=== PATIENT | male | born 1965 | race Caucasian/White ===

== ENCOUNTER → 2022-09-17 16:54 | Outpatient (CLI) | payer BC, SELFPAY ==
--- NOTE | 2022-09-17 17:01 | XR_ITS ---
PROCEDURE INFORMATION: Exam: XR Left Elbow Exam date and time: 09/17/2022 5:02 PM Age: 57 years old Clinical indication: Pain; Elbow; Left; Additional info: Left elbow pain TECHNIQUE: Imaging protocol: Radiologic exam of the left elbow. Views: 3 or more views. COMPARISON: No relevant prior studies available. FINDINGS: Bones/joints: Triceps tendinous enthesophyte. Soft tissues: Normal. Other findings: No effusion. IMPRESSION: No acute radiographic findings identified.
== END ==
PROVIDERS: PCP Nurse Practitioner Family; Visit Provider Orthopaedic Surgery
DX: M25.522 Pain in left elbow (principal)
CPT/HCPCS: 73080

== ENCOUNTER → 2022-09-18 15:28 | Outpatient (CLI) | payer BC, SELFPAY ==
--- NOTE | 2022-09-18 15:37 | ECG_ITS ---
APPROVED REPORT Exam: Resting ECG HR:50 bpm ECG Measurements Heart Rate 50 AXES IN 199 P 61 QRSd 98 QRS 33 QT 452 T 38 QTc 427 Conclusion SINUS BRADYCARDIA Isolated Q in III BORDERLINE ECG UNCONFIRMED REPORT Electronically signed by : Rashad Carter MD 09/19/2022 10:39:35
--- NOTE | 2022-09-18 15:54 | XR_ITS ---
FINAL REPORT CLINICAL HISTORY: Pre op carpal tunnel surgery sob pt is having bone spurs and carpal tunnel COMPARISON: None FINDINGS: There is no evidence of effusion or other pleural disease. The mediastinum has a normal appearance. The cardiac silhouette is unremarkable. IMPRESSION: Unremarkable chest exam. Reviewed, Interpreted and Dictated by Russell Estevez MD Transcribed by Tanisha Dobbs Authenticated and [facility]
[2022-09-18 16:12] LABS: Basophils # 0.1 K/mm3 (0-0.2); Eosinophils # 0.1 K/mm3 (0.0-0.4); Eosinophils % 1.6 % (0.1-12.0); Hematocrit 42.8 % (42.0-52.0); Hemoglobin 14.6 g/dL (14.1-18.0); Lymphocytes # 1.7 K/mm3 (0.7-4.5); Lymphocytes % 25.4 % (10-50); Mean Corpuscular Hemoglobin 30.2 pg (27.0-31.2); Mean Corpuscular Volume 88.9 fl (80-94); Mean Platelet Volume 8.8 fl (7.4-10.4); Monocytes # 0.3 K/mm3 (0.1-1.0); Neutrophils # 4.4 K/mm3 (1.8-7.8); Platelet Count 274 K/mm3 (142-424); Red Blood Count 4.82 M/mm3 (4.60-6.20); Red Cell Distribution Width 14.2 % (11.5-17.5); White Blood Count 6.6 K/mm3 (4.8-10.8)
[2022-09-18 16:43] LABS: Chloride 99 mmol/L (98-107); Potassium 3.4 mmoL/L (3.5-5.1); Sodium 138 mmol/L (136-145)
[2022-09-18 16:46] LABS: Alanine Aminotransferase 61 U/L (12-78); Albumin Level 4.4 g/dl (3.5-5.0); Albumin/Globulin Ratio 1.6 (1.1-1.8); Alkaline Phosphatase 101 U/L (38-126); Anion Gap 13.4 mEq/L (5-15); Aspartate Amino Transferase 48 U/L (17-59); Bilirubin,Total 0.6 mg/dl (0.2-1.3); Blood Urea Nitrogen 20 mg/dl (9-20); Carbon Dioxide 29 mmol/L (22.0-30.0); Estimated Glomerular Filt Rate 77 ml/min (>60); GFR (African American) 93 ML/MIN (>60); Globulin 2.7 g/dL (1.3-3.2); Total Protein,Serum 7.1 g/dl (6.3-8.2)
[2022-09-18 16:47] LABS: Calcium 9.2 mg/dl (8.4-10.2); Glucose 109 mg/dl (74-100)
== END ==
PROVIDERS: PCP Nurse Practitioner Family; Visit Provider Orthopaedic Surgery
DX: Z01.818 Encounter for other preprocedural examination (principal); G56.22 Lesion of ulnar nerve, left upper limb
CPT/HCPCS: 71046; 80053; 85025; 93005

== ENCOUNTER 2022-09-23 11:15 | Day surgery (SDC) | payer BC, SELFPAY ==
[2022-09-22 15:06] VITALS: BMI 29.8
[2022-09-23] VITALS (10 sets, daily range): BP systolic 132–160; BP diastolic 72–92; PULSE 61–84; RESP 14–18; TEMP 36.3–36.6; O2SAT 95–98
--- NOTE | 2022-09-23 12:32 | P.PN_ITS ---
[facility] Disclaimer: The information contained in this section may have been updated after the patient was seen, as this information can be updated by other users. Medical History AC (acromioclavicular) joint bone spurs Carpal tunnel syndrome Hyperlipidemia Hypertension Surgical History History of hernia repair Family History Other Family history of hypertension Family history of myocardial infarction Social History Smoking Status: Former smoker alcohol intake: current substance use type: denies use current occupational status: employed Travel in the last 8 weeks: None [facility] Anesthesia Checklist Patient Identification Patient Identification: Arm Band and Family Structural Data Admitted From: Home Planned Operative Procedure/s: left CTR and ext spur left elbow Consent for Planned Operative Procedure(s) Verified: Yes Verified Documents: History and Physical NPO Status Verified Time NPO: 00:00 Additional verifications Patient : No Anesthesia Reactions: No Hx Blood Transfusions: No Blood Transfusion Reaction: No Cephalosporin Allergy: No Airway Assessment C-Spine Mobility Assessed: Yes TMJ Mobility Assessed: Yes Dentition: Good Dentition Neurological Assessment Level of Consciousness: Awake, Alert, Appropriate and Follows Commands Hx Seizures: No Numbness or tingling in extremities: No Anesthesia Plan Anesthesia Risk discussed: Yes ASA Class: II Anesthesia Type: General
--- NOTE | 2022-09-23 14:07 | XR_ITS ---
FINAL REPORT CLINICAL HISTORY: LEFT BONE SPUR IN OR 6sec ft FINDINGS: FLUOROSCOPY 2 spot films of the left elbow in the operating room was obtained using 0.1 minutes of fluoroscopy time. IMPRESSION: Fluoroscopy as above. Reviewed, Interpreted and Dictated by Mick Guzman III, MD Transcribed by Guillermina Todd Authenticated and [facility]
--- NOTE | 2022-09-23 14:32 | EXP.ANES.I ---
[facility] Anesthesia Record Part I Anesthesia Record I Intake, IV Amount: 450 Estimated blood loss (mL): 3 Urine output (mL): 0 Blood Products used (#): none Blood Pressure: 138/91 SaO2: 96 Pulse Rate: 84 Respiratory Rate: 14 Temperature: 97.5 F Patient is:: Drowsy and Stable Stable to PACU at:: 14:18
--- NOTE | 2022-09-23 14:36 | P.OP_ITS ---
Date of procedure: 09/23/22 Pre-op Diagnosis:: Left carpal tunnel syndrome Left elbow osteophyte olecranon Post-op Diagnosis:: Same Procedure performed:: 1. Left endoscopic carpal tunnel release 2. Removal osteophyte left elbow olecranon Surgeon:: Chacorta Pelaez DO CAR GROOMER:: Other Anesthesia: LMA Estimated blood loss (mL): 0 Operative findings:: See dictation Operative note:: Patient is identified preoperatively. Left elbow and wrist marked yes my initials. Transferred operative suite. Placed upon the operating bed. General anesthesia ministered airway secured. Left upper extremity prepped and draped in normal sterile fashion. Once prepped and draped final operative timeout performed to identify proper patient procedure and extremity. Everyone involved the case agreed. There is no counter indications to beginning. Did receive preoperative antibiotics. Marking pen was used to elyssa plan incision over the volar wrist and over the osteophyte at the elbow. Esmarch was used to exsanguinate the extremity pneumatic tourniquet inflated 250 mmHg. Skin knife was used to incise the skin at the wrist careful dissection taken down the scissors to identify the most proximal aspect of the transverse carpal ligament retractors were placed. The dilator was placed into the carpal tunnel followed by the left-sided specific sled. Then camera was introduced in the carpal tunnel. Transverse carpal ligament clearly seen superiorly within the camera. Probe was used to probe the distal end of the transverse carpal ligament. Rasp was used to remove soft tissue. Then the hook blade from the [employer] endoscopic carpal tunnel set was utilized to cut the transverse carpal ligament for a full carpal tunnel release. Pictures were taken. Irrigation of the wound performed. Skin closed with nylon stitches. Attention was then brought to the elbow. X-ray was brought into identify the osteophyte at the olecranon left elbow. Skin knife is used to incise over this area dissection was taken down bluntly with scissors. The osteophyte was identified. With a combination of osteotome rongeur and a rasp the osteophyte was removed the bone was smoothed. Irrigation of the wound performed. Skin cl osed with nylon stitches. Sterile dressing placed from elbow to wrist. Patient waken anesthesia taken recovery in stable condition. Condition: stable Disposition: PACU Complications:: None apparent
--- NOTE | 2022-09-23 16:26 | P.PNANES_ITS ---
[facility] Anesthesia Record Part II Anesthesia Record Part II Discharge Time: 14:48 Destination: Surgical Day Care (OP Surgery) PACU nurse assessment reviewed?: Yes Patient Condition:: Good Anesthesia Complications:: None Swallowing reflex intact?: Yes Cyanosis?: No Blood Pressure: 147/74 Pulse Rate: 70 Temperature: 97.3 F Mental Status: Alert & Oriented Pain level:: 2 Nausea and/or vomitting:: None Intake, IV Amount: 0
== END 2022-09-23 15:09 | disposition home or self-care (01) ==
PROVIDERS: PCP Nurse Practitioner Family; Visit Provider Orthopaedic Surgery
PROC: (CPT 64721; principal; 2022-09-23 12:45)
DX: G56.02 Carpal tunnel syndrome, left upper limb (principal); M25.722 Osteophyte, left elbow
CPT/HCPCS: 29848; 24147; 73070; 76000; 96374; J2405

== ENCOUNTER → 2022-12-29 09:34 | Outpatient (CLI) | payer BC, SELFPAY ==
--- NOTE | 2022-12-29 09:40 | XR_ITS ---
FINAL REPORT CLINICAL HISTORY: lf wrist cts FINDINGS: Left wrist Three views were obtained. There is no acute fracture or dislocation. The joint spaces appear normal. No soft tissue abnormality is identified. IMPRESSION: No acute process. Reviewed, Interpreted and Dictated by Asher Hernández MD Transcribed by Guillermina Todd Authenticated and [facility]
== END ==
PROVIDERS: PCP Nurse Practitioner Family; Visit Provider Orthopaedic Surgery
DX: G56.02 Carpal tunnel syndrome, left upper limb (principal)
CPT/HCPCS: 73110